=== PATIENT | female | born 1965 | race Caucasian/White ===

== ENCOUNTER 2023-02-04 05:14 | Emergency (ER) | payer MEDICARE, OTHER ==
[~2023-02-04] VITALS: Ht 170.2 cm; Wt 97.9 kg
[2023-02-04 05:40] LABS: BASOPHILS 0.8 % (0-2); EOSINOPHILS 0.4 % (0-6); HEMATOCRIT 39.7 % (35.0-50.0); HEMOGLOBIN 13.2 g/dL (12.0-18.0); LYMPHOCYTES 15.4 % (24-44); MCH 30.6 (27-36); MCHC 33.3 g/dl (30-36); MCV 91.9 fl (81-99); MONOCYTES 8.3 % (0-12); NEUTROPHILS 75.1 % (39-80); PLATELET COUNT 233 K/uL (140-440); RBC 4.32 M/ul (4.3-5.7); RDW 14.9 (10.5-15.0)
[2023-02-04 05:54] LABS: ALBUMIN 3.2 g/dL (3.4-5.0); ALBUMIN/GLOBULIN RATIO 1.1 (1.1-2.4); ANION GAP 15.4 (7-21); BILIRUBIN, TOTAL 0.6 ng/dL (0.2-1.0); BUN/CREATININE RATIO 20.21 (6.0-28.6); CALCIUM 9.4 mg/dL (8.5-10.1); CREATININE, SERUM 0.94 mg/dL (0.55-1.02); POTASSIUM 3.4 mmol/L (3.5-5.1); PROTEIN, TOTAL 6.1 g/dL (6.4-8.2)
[2023-02-04] MEDS ORDERED: HUMALOG100 UNIT/2 (06:02)
[2023-02-04] MEDS ORDERED: RIZATRIPTAN10 MG (06:03)
[2023-02-04] MEDS ORDERED: DUPIXENT P300 MG/2 M (06:04)
[2023-02-04] MEDS ORDERED: LIDOCAINE PAIN1 EACH (06:05)
[2023-02-04] MEDS ORDERED: LANTUS100 UNITS/ (06:05)
[2023-02-04] MEDS ORDERED: ASTEPRO AL205.5 MCG/ (06:07)
[2023-02-04] MEDS ORDERED: CODEINE SULFATE30 MG PO (06:26)
[2023-02-04] MEDS ORDERED: OZEMPIC0.25 MG/02 (06:26)
[2023-02-04] MEDS ORDERED: VENLAFAXINE HC225 MG PO (06:27)
[2023-02-04] MEDS ORDERED: TRIAMTERENE-HC1 EAC1 PO (06:28)
[2023-02-04] MEDS ORDERED: BACTRIM DS TAB1 EACH PO (06:29)
[2023-02-04] MEDS ORDERED: TELMISARTAN20 MG PO (06:29)
[2023-02-04] MEDS ORDERED: TRELEGY ELLIPT1 EAC1 PO (06:29)
[2023-02-04] MEDS ORDERED: PRAZOSIN HCL2 MG PO (06:30)
[2023-02-04] MEDS ORDERED: PANTOPRAZOLE SO40 M2 PO (06:31)
[2023-02-04] MEDS ORDERED: LIPITOR20 MG PO (06:31)
[2023-02-04] MEDS ORDERED: IPRAT-ALBUT 0.5-3 ML PO (06:32)
[2023-02-04] MEDS ORDERED: PROAIR DIGIHAL90 MCG (06:32)
[2023-02-04] MEDS ORDERED: AMLODIPINE BES2.5 MG PO (06:32)
[2023-02-04] MEDS ORDERED: DULCOLAX10 MG (06:34)
[2023-02-04] MEDS ORDERED: FLEET ENEMA133 ML (06:34)
[2023-02-04] MEDS ORDERED: MILK OF MA400 MG/5 M (06:35)
[2023-02-04] MEDS ORDERED: LIDODERM1 EACH TOP (06:55)
[2023-02-04] MEDS ORDERED: OXYCODONE HCL10 MG PO (06:55)
[2023-02-04 07:10] LABS: BILIRUBIN, URINE NEGATIVE (negative); BLOOD/HGB, URINE NEGATIVE (Negative); KETONE, URINE SMALL (Negative); LEUK ESTERASE, URINE NEGATIVE (negative); NITRITE, URINE NEGATIVE (negative)
[2023-02-04 07:46] VITALS: BP 126/88
--- OUTSIDE RECORDS SUMMARY | 2023-02-04 08:15 | XMS ---
PreManage Notification: DOMINICK JEREZ Security Seed Specialist Events No recent Security Events currently on file CRITERIA MET - 6 ED Visits in 6 Months - [facility] - [facility] - 2 Visits in 30 Days CARE PROVIDERS KENY ROBLES [employer] 01/30/2023-Current PHONE: [phone] Aly [facility]: Dental Current Dental- Juliane PHONE: [phone] -Telma DDS Dentist Current PHONE: [phone] DALLAS CUMMINS Nurse Practitioner: Family Current PHONE: [phone] MANUELA PUGH Internal Medicine Current PHONE: Unknown Andre has no Care Guidelines for this patient. Kaylyn VISIT COUNT (12 MO.) 11 Omid Cavazos ([facility]) 1 CHUY [place] TOTAL 12 NOTE: Visits indicate total known visits. ED/UCC VISIT TRACKING (12 MO.) 02/04/2023 05:14 [facility]UY [facility] [place] TYPE: Emergency COMPLAINT: - BACK PAIN 01/29/2023 16:07 Omid [facility] ([facility]) TYPE: Emergency DIAGNOSES: - Acute kidney failure, unspecified - Chronic kidney disease, stage 3 unspecified - Dehydration - Other specified abnormal findings of blood chemistry - Type 2 diabetes mellitus with hyperglycemia - Wedge compression fracture of first lumbar vertebra, subsequent encounter for fracture with routine healing 01/29/2023 16:07 O[facility] ([facility]) TYPE: Emergency DIAGNOSES: - Acute kidney failure, unspecified - Chronic kidney disease, stage 3 unspecified - Dehydration - Other specified abnormal findings of blood chemistry - Type 2 diabetes mellitus with hyperglycemia - Fall - Fall; Lowerback Pain 01/29/2023 16:07 Omid HuNhung [facility]ERS [facility] ([facility]) TYPE: Emergency DIAGNOSES: - Acute kidney failure, unspecified - Chronic kidney disease, stage 3 unspecified - Dehydration - Other specified abnormal findings of blood chemistry - Type 2 diabetes mellitus with hyperglycemia 01/10/2023 09:30 Omid HuNhung [facility] ([facility]) TYPE: Emergency DIAGNOSES: - Dehydration - Unspecified fall, initial encounter - Wedge compression fracture of first lumbar vertebra, initial encounter for closed fracture - Back Pain - Fall; Back/Groin Pain - Multiple Falls 11/01/2022 14:32 Omid Edouardcaty FritzNhung [facility] ([facility]) TYPE: Emergency DIAGNOSES: - Chronic obstructive pulmonary disease with (acute) exacerbation - Shortness of Breath 10/19/2022 06:18 Omid Edouardcaty FritzNhung [facility] ([facility]) TYPE: Emergency DIAGNOSES: - Hypoglycemia, unspecified - Other migraine, not intractable, without status migrainosus - Decreased Blood Sugar (Symptomatic) - Dizziness 09/25/2022 15:44 Omid [facility] ([facility]) TYPE: Emergency DIAGNOSES: - Contusion of scalp, initial encounter - Contusion of scalp, initial encounter - Fall on same level, unspecified, initial encounter - Fall; Head Injury - Head Injury 08/21/2022 13:38 Omid [facility] ([facility]) TYPE: Emergency DIAGNOSES: - Urinary tract infection, site not specified - Dysuria - Followup Medical Problem - Urinary Complaint 07/12/2022 14:15 Omid [facility] ([facility]) TYPE: Emergency DIAGNOSES: - Fall on same level, unspecified, initial encounter - Fall 07/03/2022 13:58 Omid [facility] ([facility]) TYPE: Emergency DIAGNOSES: - Unspecified asthma with (acute) exacerbation - Shortness of Breath - SOB 05/06/2022 17:34 Omid Edouardcaty FritzNhung [facility] ([facility]) TYPE: Emergency DIAGNOSES: - Disorder of kidney and ureter, unspecified - Nausea - Viral infection, unspecified - Nausea - Weakness INPATIENT VISIT TRACKING (12 MO.) 01/31/2023 16:39 Omid EdouardGarner [facility] ([facility]) TYPE: Behavioral Health DIAGNOSES: - Bipolar disorder, unspecified - Generalized anxiety disorder - Insomnia due to other mental disorder - Mental disorder, not otherwise specified - Post-traumatic stress disorder, unspecified 01/29/2023 16:07 Omid [facility]MAN OR ([facility]) TYPE: Emergency DIAGNOSES: - Acute kidney failure, unspecified - Chronic kidney disease, stage 3 unspecified - Dehydration - Other specified abnormal findings of blood chemistry - Type 2 diabetes mellitus with hyperglycemia - Wedge compression fracture of first lumbar vertebra, subsequent encounter for fracture with routine healing [email or web address]
== END 2023-02-04 07:52 | disposition home or self-care (01) ==
LOC: ED 05:14
PROVIDERS: Internal Medicine
DX: M48.56XA Collapsed vertebra, not elsewhere classified, lumbar region, initial encounter for fracture (principal); M48.54XA Collapsed vertebra, not elsewhere classified, thoracic region, initial encounter for fracture; E66.01 Morbid (severe) obesity due to excess calories; Z88.5 Allergy status to narcotic agent; Z88.8 Allergy status to other drugs, medicaments and biological substances; Z91.041 Radiographic dye allergy status; Z88.0 Allergy status to penicillin; Z88.7 Allergy status to serum and vaccine; Z79.4 Long term (current) use of insulin; Z79.899 Other long term (current) drug therapy
CPT/HCPCS: 36415; 51701; 72131; 74176; 80053; 81003; 85025; 99284-25; A9270; J1170; J7121